=== PATIENT | female | born 1995 | race African-American/Black ===

== ENCOUNTER 2018-10-17 23:05 | Emergency (ER) | payer MEDICAID ==
[~2018-10-17] VITALS: Ht 162.6 cm; Wt 82.0 kg
[2018-10-18 02:57] LABS: BASOPHILS % 0.7 % (0.0-2.0); CHLORIDE 108 mEq/L (98-107); EOSINOPHILS % 0.2 % (0.0-5.0); HEMATOCRIT. 37.9 % (36.0-48.0); HEMOGLOBIN. 12.9 g/dL (12.0-16.0); LYMPHOCYTES % 27.8 % (20.0-50.0); MEAN CORPUSCULAR HEMOGLOBIN 29.6 pg (28.0-32.0); MEAN CORPUSCULAR VOLUME 87.4 fL (81.0-99.0); MEAN PLATELET VOLUME 8.4 fl (7.4-10.4); MONOCYTES % 8.6 % (2.0-8.0); NEUTROPHILS % 62.7 % (40.0-76.0); PLATELET 326 x1000/uL (130-400); RED BLOOD CELL COUNT 4.34 mill/uL (4.2-5.4); RED CELL DISTRIBUTION WIDTH 13.8 % (11.6-14.6)
[2018-10-18 05:02] VITALS: BP 117/78
== END 2018-10-18 05:08 | disposition home or self-care (01) ==
LOC: ER 23:33
DX: R07.9 Chest pain, unspecified (principal); R10.9 Unspecified abdominal pain; J45.909 Unspecified asthma, uncomplicated
CPT/HCPCS: 36415; 71045; 81025; 84484; 85379; 93005; 99284

== ENCOUNTER 2019-10-13 23:41 | Emergency (ER) | payer MEDICAID ==
[~2019-10-13] VITALS: Ht 162.6 cm; Wt 102.0 kg
[2019-10-14] MEDS ORDERED: KETOROLAC 30MG/ML VIAL IM ONE (00:30)
[2019-10-14 02:28] VITALS: BP 136/86
== END 2019-10-14 02:29 | disposition home or self-care (01) ==
LOC: ER 23:41
DX: M10.9 Gout, unspecified (principal); J45.909 Unspecified asthma, uncomplicated; Z98.890 Other specified postprocedural states
CPT/HCPCS: 73630; 96372; 99283; J1885

== ENCOUNTER 2020-04-11 17:11 | Emergency (ER) | payer MEDICAID ==
[~2020-04-11] VITALS: Ht 162.6 cm; Wt 113.0 kg
[2020-04-11 19:51] LABS: BASOPHILS % 0.3 % (0.0-2.0); EOSINOPHILS % 0.9 % (0.0-5.0); HEMOGLOBIN. 11.4 g/dL (12.0-16.0); LYMPHOCYTES % 21.7 % (20.0-50.0); MEAN CORPUSCULAR HEMOGLOBIN 29.8 pg (28.0-32.0); MEAN CORPUSCULAR VOLUME 88.9 fL (81.0-99.0); MEAN PLATELET VOLUME 8.1 fl (7.4-10.4); MONOCYTES % 9.3 % (2.0-8.0); NEUTROPHILS % 67.8 % (40.0-76.0); PLATELET 289 x1000/uL (130-400); RED BLOOD CELL COUNT 3.82 mill/uL (4.2-5.4); RED CELL DISTRIBUTION WIDTH 14.6 % (11.6-14.6)
[2020-04-11 19:54] LABS: CHLORIDE 105 mEq/L (98-107)
[2020-04-11 21:32] VITALS: BP 120/71
== END 2020-04-11 21:33 | disposition home or self-care (01) ==
LOC: ER 17:11
DX: O26.812 Pregnancy related exhaustion and fatigue, second trimester (principal); O99.512 Diseases of the respiratory system complicating pregnancy, second trimester; J45.909 Unspecified asthma, uncomplicated; Z3A.18 18 weeks gestation of pregnancy
CPT/HCPCS: 36415; 80048; 85025; 99283

== ENCOUNTER 2022-12-17 13:51 | Emergency (ER) | payer MEDICAID, OTHER ==
[~2022-12-17] VITALS: Ht 165.1 cm; Wt 73.0 kg
[2022-12-17 13:52] VITALS: BP 130/90; PULSE 80; RESP 20; TEMP 98.8; O2SAT 100
== END 2022-12-17 16:25 | disposition left against medical advice (07) ==
LOC: ER 13:51
DX: Z53.21 Procedure and treatment not carried out due to patient leaving prior to being seen by health care provider (principal)
CPT/HCPCS: 99281

== ENCOUNTER 2023-06-04 14:03 | Emergency (ER) | payer MEDICAID ==
[~2023-06-04] VITALS: Ht 167.6 cm; Wt 86.0 kg
[2023-06-04 14:08] VITALS: BP 135/85; PULSE 90; RESP 20; TEMP 98.3; O2SAT 100
== END 2023-06-04 14:51 | disposition home or self-care (01) ==
LOC: ER 14:03
DX: R00.2 Palpitations (principal); I10 Essential (primary) hypertension; J45.909 Unspecified asthma, uncomplicated; Z98.890 Other specified postprocedural states
CPT/HCPCS: 93005; 99283

== ENCOUNTER 2024-02-05 12:07 | Emergency (ER) | payer MEDICAID, OTHER ==
[~2024-02-05] VITALS: Ht 165.1 cm; Wt 86.0 kg
[2024-02-05 12:08] VITALS: O2SAT 99
[2024-02-05 12:11] VITALS: BP 137/82; PULSE 72; RESP 18; TEMP 98.7; O2SAT 99
[2024-02-05 12:34] LABS: BASOPHILS % 0.6 % (0.0-2.0); EOSINOPHILS % 1.1 % (0.0-5.0); HEMATOCRIT. 34.5 % (36.0-48.0); HEMOGLOBIN. 11.1 g/dL (12.0-16.0); LYMPHOCYTES % 34.5 % (20.0-50.0); MEAN CORPUSCULAR HEMOGLOBIN 26.2 pg (28.0-32.0); MEAN CORPUSCULAR VOLUME 81.8 fL (81.0-99.0); MEAN PLATELET VOLUME 8.3 fl (7.4-10.4); MONOCYTES % 7.8 % (2.0-8.0); PLATELET 315 x1000/uL (130-400); RED BLOOD CELL COUNT 4.22 mill/uL (4.2-5.4); RED CELL DISTRIBUTION WIDTH 16.6 % (11.6-14.6); WHITE BLOOD COUNT 6.6 x1000/uL (4.5-11.0)
[2024-02-05 12:36] LABS: CLARITY URINE CLEAR (CLEAR); COLOR URINE YELLOW (YELLOW); GLUCOSE URINE NEGATIVE (NEGATIVE); KETONES URINE NEGATIVE (NEGATIVE); LEUKOCYTE ESTERASE URINE NEGATIVE (NEGATIVE); NITRITE URINE NEGATIVE (NEGATIVE); OCCULT BLOOD URINE NEGATIVE (NEGATIVE); PROTEIN URINE NEGATIVE (NEGATIVE); SPECIFIC GRAVITY URINE 1.024 (1.005-1.030)
[2024-02-05 12:40] LABS: CHLORIDE 105 mEq/L (98-107); POTASSIUM 3.5 mEq/L (3.5-5.1); SODIUM 136 mEq/L (136-145)
[2024-02-05 12:41] LABS: CARBON DIOXIDE 26 mEq/L (21-32)
[2024-02-05 12:46] LABS: CREATININE 0.8 mg/dL (0.6-1.0); GLUCOSE 86 mg/dL (70-105); UREA NITROGEN BLOOD 9 mg/dL (9-23)
== END 2024-02-05 15:27 | disposition home or self-care (01) ==
LOC: ER 12:17
DX: R53.1 Weakness (principal); J45.909 Unspecified asthma, uncomplicated; I10 Essential (primary) hypertension; Z98.890 Other specified postprocedural states
CPT/HCPCS: 36415; 80048; 81003; 81025; 85025; 93005; 99284

== ENCOUNTER 2024-09-02 18:55 | Emergency (ER) | payer MEDICAID, OTHER ==
[~2024-09-02] VITALS: Ht 165.1 cm; Wt 96.0 kg
[2024-09-02 19:00] VITALS: O2SAT 100
[2024-09-02 19:13] VITALS: TEMP 36.9
[2024-09-02 19:19] LABS: BASOPHILS % 0.9 % (0.0-2.0); DIFFERENTIAL COMMENT 0; EOSINOPHILS % 0.6 % (0.0-5.0); HEMATOCRIT. 28.9 % (36.0-48.0); HEMOGLOBIN. 9.6 g/dL (12.0-16.0); LYMPHOCYTES % 24.8 % (20.0-50.0); MEAN CORPUSCULAR HEMOGLOBIN 25.8 pg (28.0-32.0); MEAN CORPUSCULAR HGB CONC 33.1 g/dL (31.0-37.0); MEAN CORPUSCULAR VOLUME 77.8 fL (81.0-99.0); MEAN PLATELET VOLUME 8.6 fl (7.4-10.4); MONOCYTES % 7.2 % (2.0-8.0); NEUTROPHILS % 66.5 % (40.0-76.0); PLATELET 264 x1000/uL (130-400); RED BLOOD CELL COUNT 3.72 mill/uL (4.2-5.4); RED CELL DISTRIBUTION WIDTH 15.2 % (11.6-14.6); WHITE BLOOD COUNT 7.5 x1000/uL (4.5-11.0)
[2024-09-02 19:20] VITALS: TEMP 98.4
[2024-09-02] MEDS: MORPHINE SULFATE 4 MG/ML INJ (FOR IV/IM USE) IV STA (19:20)
[2024-09-02] MEDS: ACETAMINOPHEN 325MG TABLET PO STA (19:20)
[2024-09-02 19:26] LABS: CHLORIDE 105 mEq/L (98-107); POTASSIUM 3.7 mEq/L (3.5-5.1); SODIUM 135 mEq/L (136-145)
[2024-09-02 19:27] LABS: CALCIUM 9.2 mg/dL (8.7-10.4); CARBON DIOXIDE 21 mEq/L (21-32)
[2024-09-02 19:30] LABS: PROTHROMBIN TIME 10.9 sec (9.6-11.0)
[2024-09-02 19:32] LABS: CREATININE 0.8 mg/dL (0.6-1.0); GLUCOSE 89 mg/dL (70-105); UREA NITROGEN BLOOD 8 mg/dL (9-23)
[2024-09-02 19:34] LABS: ALANINE AMINOTRANSFERASE 9 IU/L (10-49); ALBUMIN 4.1 g/dL (3.2-4.8); ASPARTATE AMINOTRANSFERASE 17 IU/L (<34)
[2024-09-02 19:35] LABS: BILIRUBIN DIRECT 0.1 mg/dL (<=3.0); BILIRUBIN TOTAL 0.5 mg/dL (0.1-1.0); PROTEIN TOTAL 7.8 g/dL (6.0-8.3)
[2024-09-02 19:50] LABS: HCG SCREEN POSITIVE
[2024-09-02 20:01] LABS: CLARITY URINE CLEAR (CLEAR); COLOR URINE YELLOW (YELLOW); GLUCOSE URINE NEGATIVE (NEGATIVE); KETONES URINE 1+ (NEGATIVE); LEUKOCYTE ESTERASE URINE 1+ (NEGATIVE); NITRITE URINE NEGATIVE (NEGATIVE); OCCULT BLOOD URINE NEGATIVE (NEGATIVE); PH URINE 6.5 (4.5-8.0); PROTEIN URINE NEGATIVE (NEGATIVE); SPECIFIC GRAVITY URINE 1.024 (1.005-1.030)
[2024-09-02 20:47] LABS: BACTERIA URINE TRACE; RBC URINE NONE SEEN /hpf (0-2); SQUAMOUS EPITHELIAL CELL URINE 1+ /lpf (RARE/1+)
[2024-09-02] MEDS ORDERED: NITR-87 MT (21:55)
[2024-09-02 21:58] VITALS: BP 120/76; PULSE 67; RESP 17; O2SAT 98
== END 2024-09-02 22:14 | disposition home or self-care (01) ==
LOC: ER 18:55
DX: O10.913 Unspecified pre-existing hypertension complicating pregnancy, third trimester (principal); O99.513 Diseases of the respiratory system complicating pregnancy, third trimester; J45.909 Unspecified asthma, uncomplicated; O26.893 Other specified pregnancy related conditions, third trimester; R82.71 Bacteriuria; Z3A.33 33 weeks gestation of pregnancy; V89.2XXA Person injured in unspecified motor-vehicle accident, traffic, initial encounter; Y93.89 Activity, other specified; Y92.89 Other specified places as the place of occurrence of the external cause; Y99.8 Other external cause status
CPT/HCPCS: 99285; 96374; 76705; 80076; 80048; 81003; 84703; 83690; 85025; 85610; 86850; 86900; 86901; 36415; 76815; J2270